=== PATIENT | female | born 1950 | race Caucasian/White ===

== ENCOUNTER 2025-02-07 19:16 | Inpatient (IN) ==
[2025-02-07 20:21] LABS: Basophils # (Auto) 0.02 K/mcL (0.00-0.30); Basophils % (Auto) 0.4 % (0.0-2.0); Eosinophils # (Auto) 0.02 K/mcL (0.00-0.70); Eosinophils % (Auto) 0.4 % (0.0-7.0); Hematocrit 41.8 % (34.1-44.9); Hemoglobin 14.2 g/dL (11.2-15.7); Lymphocytes # (Auto) 2.48 K/mcL (1.50-4.80); Lymphocytes % (Auto) 44.8 % (15.5-49.0); Mean Cell Volume 90.5 fL (80.0-100.0); Mean Platelet Volume 9.9 fL (8.8-12.5); Monocytes # (Auto) 0.23 K/mcL (0.10-0.90); Monocytes % (Auto) 4.2 % (1.0-12.0); Platelet Count 246 K/mcL (140-440); RBC 4.62 M/mcL (3.59-5.38); WBC 5.5 K/mcL (4.5-11.0)
[2025-02-07 20:41] LABS: ALT/SGPT 20 U/L (<40); AST/SGOT 19 U/L (<32); Albumin 4.3 gm/dL (3.2-5.2); Albumin/Globulin Ratio 1.9 (1.0-2.3); Alkaline Phosphatase 66 U/L (39-117); Bilirubin,Total 0.7 mg/dL (0.1-1.0); Blood Urea Nitrogen 10 mg/dL (8-23); Carbon Dioxide 22 mmol/L (22-30); Chloride 108 mmol/L (96-108); Globulin 2.3 gm/dL (2.2-3.7); Glomerular Filtration Rate 90; Glucose 101 mg/dL (70-105); Potassium 3.5 mmol/L (3.3-5.1); Sodium 145 mmol/L (133-145)
[2025-02-07 20:50] LABS: Prothrombin Time 14.2 sec (11.9-14.5)
[2025-02-07] MEDS: fentaNYL 100 MCG/2 ML VIAL IV ONE (21:00)
[2025-02-07] MEDS: ACETAMINOPHEN 1,000 MG/100 ML BAG IV ONE (21:00)
[2025-02-07] MEDS: KETOROLAC 30 MG/ML VIAL IV ONE (21:01)
[2025-02-07] MEDS ORDERED: oxyCODONE IR 5 MG TABLET PO PRN (22:30)
[2025-02-07] MEDS: 0.9 % SODIUM CHLORIDE 10 ML SYRINGE IV SCH (22:59)
[2025-02-08] MEDS: LACTATED RINGERS 1,000 ML IV SCH ×4 (00:06→13:57)
[2025-02-08] MEDS: ACETAMINOPHEN 1,000 MG/100 ML BAG IV SCH (03:26)
[2025-02-08] MEDS: ACETAMINOPHEN 1,000 MG/100 ML BAG IV ONE ×2 (03:34→09:29)
[2025-02-08] MEDS: HYDROmorphone 0.5 MG/0.5 ML SYRINGE IV PRN (06:42)
[2025-02-08] MEDS: HYDROmorphone 0.5 MG/0.5 ML SYRINGE ONE (06:45)
[2025-02-08] MEDS ORDERED: PROPOFOL 200 MG/20 ML VIAL IV ONE (07:34)
[2025-02-08] MEDS ORDERED: fentaNYL 100 MCG/2 ML VIAL ONE (07:34)
[2025-02-08] MEDS ORDERED: KETAMINE 50 MG/ML ML ONE (07:35)
[2025-02-08] MEDS ORDERED: LIDOCAINE 2% PF 5 ML VIAL ONE (07:37)
[2025-02-08] MEDS ORDERED: ONDANSETRON 4 MG/2 ML VIAL ONE (07:37)
[2025-02-08] MEDS ORDERED: GLYCOPYRROLATE 0.2 MG/ML VIAL IV ONE (07:37)
[2025-02-08] MEDS ORDERED: DEXAMETHASONE 10 MG/ML VIAL ONE (07:37)
[2025-02-08] MEDS ORDERED: TRANEXAMIC ACID 1,000 MG/10 ML VIAL ONE (07:39)
[2025-02-08] MEDS ORDERED: MAGNESIUM SULFATE 2 GM/50 ML BAG IV ONE (07:40)
[2025-02-08] MEDS: ceFAZolin 2 GM in DEXTROSE 5% IN WATER 50 ML IV SCH (07:55)
[2025-02-08] MEDS: DOCUSATE SODIUM 100 MG CAPSULE PO SCH (08:08)
[2025-02-08] MEDS ORDERED: HYDROmorphone 0.5 MG/0.5 ML SYRINGE ONE (08:15)
[2025-02-08] MEDS ORDERED: KETOROLAC 30 MG/ML VIAL ONE (08:15)
[2025-02-08] MEDS ORDERED: DROPERIDOL 5 MG/2 ML VIAL IV PRN (08:21)
[2025-02-08] MEDS ORDERED: NALOXONE HCL 0.4 MG/ML VIAL IV PRN (08:21)
[2025-02-08] MEDS ORDERED: HYDROmorphone 0.5 MG/0.5 ML SYRINGE IV PRN (08:21)
[2025-02-08] MEDS ORDERED: LACTATED RINGERS 250 ML IV PRN (08:21)
[2025-02-08] MEDS ORDERED: IPRATROPIUM/ALBUTEROL 3 ML AMPUL.NEB NEB PRN (08:21)
[2025-02-08] MEDS ORDERED: BENZOCAINE/MENTHOL 1 LOZENGE PO PRN ×2 (08:21→09:03)
[2025-02-08] MEDS ORDERED: FAMOTIDINE/PF 20 MG/2 ML VIAL IV ONE (08:25)
[2025-02-08] MEDS ORDERED: PHENYLephrine 1 MG/10 ML SYRINGE (ANEST) ONE (08:28)
[2025-02-08] MEDS ORDERED: METHOCARBAMOL 500 MG TABLET PO PRN (09:03)
[2025-02-08] MEDS ORDERED: ceFAZolin 2 GM in DEXTROSE 5% IN WATER 50 ML IV SCH (09:15)
[2025-02-08] MEDS: METHOCARBAMOL 1,000 MG/10 ML VIAL IV PRN (09:41)
[2025-02-08] MEDS: fentaNYL 100 MCG/2 ML VIAL IV PRN (09:44)
[2025-02-08] MEDS: TRANEXAMIC ACID 1,000 MG/10 ML VIAL IV ONE (09:46)
[2025-02-08] MEDS: ONDANSETRON 4 MG/2 ML VIAL IV PRN ×2 (09:54→14:51)
[2025-02-08] MEDS: oxyCODONE IR 5 MG TABLET PO PRN (10:20)
[2025-02-08] MEDS: METOCLOPRAMIDE 10 MG/2 ML VIAL IV PRN (11:30)
[2025-02-08] MEDS: ACETAMINOPHEN 500 MG TABLET PO SCH (14:15)
[2025-02-08] MEDS: ceFAZolin 1 GM VIAL IV SCH (16:09)
[2025-02-08] MEDS: SENNOSIDES 1 TABLET PO SCH (20:39)
[2025-02-08] MEDS: ASPIRIN 81 MG TAB.CHEW CHEWED SCH (20:39)
== END 2025-02-10 14:01 | disposition home or self-care (01) | DRG 482 ==
LOC: ED 19:16 → MEDSUR 22:26
PROVIDERS: ADMIT Internal Medicine; ATTEND Internal Medicine